=== PATIENT | male | born 1970 | race Caucasian/White ===

== ENCOUNTER 2024-02-01 11:13 | Emergency (ER) | payer BC, SELFPAY ==
--- NOTE | 2024-02-01 11:16 | ED.GENMED ---
History of Present Illness
General
Chief Complaint: Abdominal Symptoms
Time Seen by Provider: 02/01/24 11:15
History of Present Illness
History of Present Illness:
HPI: Patient presents with rather significant vertiginous symptoms that started earlier today. His symptoms were so severe that he laid himself to the ground and called EMS. EMS found him on the ground. He does not have a headache. This is
associated with dry heaves/nausea. EMS gave oral Zofran. The symptoms worsen when he turns his head.
EXAM:
GENERAL: Appears mild distress; elevated BMI
HEENT: Moist oral mucosa
CARDIOVASCULAR: No murmurs, normal heart rate, regular rhythm, No chest wall tenderness
PULMONARY: No respiratory distress, breath sounds are clear and equal
ABDOMEN: Soft with no peritoneal signs, no tenderness
NEUROLOGIC: Excellent strength all extremities, no coordination deficits�normal finger-nose testing
PSYCHIATRIC: Appropriate mental status, normal insight and judgement
EXTREMITIES: Nontender, no edema, moves all extremities equally
SKIN: No rash, no lesions
TIME OF INITIAL ENCOUNTER: 11:15 AM
NUMBER AND COMPLEXITY OF PROBLEMS ADDRESSED AT THE ENCOUNTER
� Chronic conditions affecting care: Has not had vertigo before
� Acute Exacerbation and/or Progression of Chronic Illness: This is an acute problem
� Differential Diagnosis includes: Vertigo/labyrinthitis, benign paroxysmal positional vertigo, intracranial etiology, CVA unlikely
AMOUNT AND/OR COMPLEXITY OF DATA TO BE REVIEWED AND ANALYZED
� I performed an independent evaluation of and my interpretation is:
EKG: Sinus 82, normal axis, no acute ST abnormality, QTc slightly prolonged at 472 [address]
CT: CT imaging of the brain is unremarkable
X-rays:
Laboratory Studies: White count 4.4, chemistries unremarkable except glucose is 178, BUN is slightly elevated 24 in comparison to creatinine
Other:
� Review of other/old records:
� Clinical information was obtained by an independent historian: I spoke to EMS at bedside; I also spoke to
� Prescriptions/Medications Considered but not given:
� Further testing considered but not performed:
RISK OF COMPLICATIONS AND/OR MORBIDITY OR MORTALITY OF PATIENT MANAGEMENT
� Social determinants of health affecting care: Works as a police clerk in [place]
� Discussion with other providers:
� Escalation of care including admission/observation vs risk of discharge considered: The patient has ongoing nausea and symptoms worsen with position changes of the head. Suspect positional vertigo however given the severity of
his symptoms and the fact that he came in by ambulance will obtain CT imaging of the brain. He reports no abdominal pain. I have ordered Zofran, fluids, and IV Valium. On reassessment at 1:20 PM, he overall appears improved. CT imaging
unremarkable. Labs unremarkable. I gave prescription for physical therapy.
Phy Exam
Physical Exam
Physical Exam:
See HPI
Course
Orders/Labs/Results
Orders:
Orders
02/01/24 11:15
Electrocardiogram (*1) Urgent
Reason for Study: Vertigo / Dizzy
02/01/24 11:16
EKG- Treatment ONCE
02/01/24 11:19
CT Head W/o Iv Contrast Urgent
Comment:
Reason For Exam: severe vertigo
0.9% Sodium Chloride 1000 ml [Nss] 1,000 ml IV BOLUS
Ondansetron Injectable [Zofran] 4 mg IV NOW STA
diazePAM [Valium Injection] 5 mg IV NOW STA
02/01/24 11:24
Complete Blood Count/With Diff Urgent
Comprehensive Metabolic Panel Urgent
Abnormal Lab Results
02/01/24
11:24
WBC 4.4 L 10^3/uL
(4.8-10.8)
MCV 77.8 L fL
(80.0-94.0)
Immature Gran % 0.9 H %
(0-0.5)
BUN 24 H mg/dl
(9-20)
Glucose 178 H mg/dl
(70-99)
ALT 79 H U/L
(0-50)
02/01/24 11:24
02/01/24 11:24
Vital Signs
Initial and Last Documented VS:
Initial Vital Signs
Pulse Resp Pulse Ox
81 17 98
02/01/24 11:15 02/01/24 11:15 02/01/24 11:15
Last Documented Vital Signs
Temp Pulse Resp BP Pulse Ox
97.5 F 80 24 136/96 97
02/01/24 11:17 02/01/24 14:15 02/01/24 14:15 02/01/24 14:00 02/01/24 14:15
*Critical Care Note
Total Time (30-74mins, 75-104mins- exclusive of procedures): Not Applicable
ED Attending Note
-
Portions of this chart may have been created with voice recognition software.� Occasional wrong word or��sound alike� substitutions may have occurred due to the inherent limitations of voice recognition software.
Discharge Plan
Departure
Patient Disposition: Home (Routine Discharge)
Date of Disposition: 02/01/24
Time of Disposition: 13:28
Patient with high blood pressure during this ER visit?: Yes
Discharge Problem:
Benign paroxysmal positional vertigo
Instructions: Vertigo (a type of dizziness), Vestibular Exercises
Prescriptions:
New
ondansetron HCl 4 mg tablet
4 mg PO Q8H PRN (Reason: nausea and vomiting) Qty: 10 0RF
diazepam 5 mg tablet
5 mg PO TID PRN (Reason: vertigo) Qty: 15 0RF
Activity Restrictions/Additional Instructions:
I recommend that you arrange for vestibular physical therapy by calling [phone]. Return here if worse. CAT scan of the brain shows no acute abnormality. Basic blood work is unremarkable. Do not drive if you take diazepam/Valium.
Interventions
Interventions:
*Risk Screen - Suicide Last Done: 02/01/24 11:17
*General Assessment Last Done: 02/01/24 11:17
*Neglect/Abuse Screening Last Done: 02/01/24 11:17
ED- Fall Risk Assessment Last Done: 02/01/24 11:45
*ED COVID-19 Vaccine History Last Done: 02/01/24 11:17
*Nursing Disposition Last Done: 02/01/24 14:21
QO-Xgznrj-Qeonxxlzlh Assessment Last Done: 02/01/24 11:45
Discharge Date and Time
Discharge Date/Time: 02/01/24 14:22
Print Language: CROATIAN
[2024-02-01 11:17] VITALS: BP 136/83; BMI 40.6
[2024-02-01] MEDS: ZOFRAN 4 MG IV (11:26)
[2024-02-01] MEDS: NSS 1000 IV (11:26)
[2024-02-01] MEDS: VALIUM INJECTION 5 MG IV (11:27)
[2024-02-01 11:34] LABS: % Basophils 0.5 % (0-2); % Eosinophils 2.1 % (0-6); % Immature Granulocytes 0.9 % (0-0.5); % Lymphocytes 46.9 % (20.5-51.1); % Monocytes 6.6 % (1.7-9.3); Absolute Eosinophils 0.1 10^3/uL (0-0.7); Absolute Lymphocytes 2.1 10^3/uL (1.2-3.4); Absolute Monocytes 0.3 10^3/uL (0.1-0.6); Absolute Neutrophils 1.9 10^3/uL (1.4-6.5); Hematocrit 44.1 % (39.0-52.0); Hemoglobin 15.3 g/dL (13.0-18.0); Mean Corp Hgb Conc. 34.7 g/dL (33.0-37.0); Mean Corpuscular Volume 77.8 fL (80.0-94.0); Mean Platelet Volume 9.8 fL (7.4-10.4); Nucleated Red Blood Cells % 0 % (-); Platelet Count 187 10^3/uL (130-400); Red Blood Cell Count 5.67 10^6/uL (4.70-6.10); Red Cell Dist. Width 13.3 % (11.5-14.5); White Blood Cell Count 4.4 10^3/uL (4.8-10.8)
[2024-02-01 11:42] LABS: ALT (SGPT) 79 U/L (0-50); AST (SGOT) 43 U/L (17-59); Albumin 4.7 g/dl (3.5-5.0); Alkaline Phosphatase 73 U/L (38-126); Blood Urea Nitrogen 24 mg/dl (9-20); Calcium 9.6 mg/dl (8.4-10.2); Carbon Dioxide 24 mmol/L (22-30); Chloride 105 mmol/L (98-107); Estimated Creatinine Clearance 122 ml/min; Glucose 178 mg/dl (70-99); Potassium 4.6 mmol/L (3.5-5.1); Sodium 136 mmol/L (135-145); Total Bilirubin 0.4 mg/dl (0.2-1.3); Total Protein 7.8 g/dl (6.3-8.2); eGFR > 60.00
[2024-02-01 12:00] VITALS: BP 138/83
[2024-02-01 13:00] VITALS: BP 136/88
[2024-02-01 14:00] VITALS: BP 136/96
== END 2024-02-01 14:22 | disposition home or self-care (01) ==
LOC: EMR 11:13
PROVIDERS: EMERGENCY PHYSICIAN Emergency Medicine; FAMILY PHYSICIAN Family Medicine
DX: H81.10 Benign paroxysmal vertigo, unspecified ear (principal)
CPT/HCPCS: 99284; 96374; 96375; 96361; 70450; 80053; 85025; 93005